=== PATIENT | male | born 1980 | race Caucasian/White ===

== ENCOUNTER 2025-04-05 10:46 | Outpatient (REF) | payer MEDICAID, SELFPAY ==
[2025-04-05 12:46] LABS: Alanine Aminotransferase 89 U/L (0-40); Albumin Level 4.2 g/dL (3.5-5.0); Alkaline Phosphatase 91 U/L (39-117); Anion Gap 7 (12-20); Aspartate Amino Transferase 45 U/L (5-37); Blood Urea Nitrogen 15 mg/dL (9-16); Calcium 8.8 mg/dL (8.4-10.2); Carbon Dioxide 26 mmol/L (22-29); Chloride 110 mmol/L (96-108); Cholesterol 115 mg/dL (<200); Estimated Glomerular Filt Rate > 60; HDL Cholesterol 28 mg/dL (>40); Potassium 4.1 mmol/L (3.3-5.1); Sodium 139 mmol/L (135-145); Total Protein 6.8 g/dL (6.5-8.0); Triglycerides 60 mg/dL (<150)
[2025-04-05 12:51] LABS: Thyroid Stimulating Hormone 1.92 uIU/mL (0.32-4.0)
== END 2025-04-05 10:47 | disposition home or self-care (01) ==
LOC: HO.10HDL 10:46
PROVIDERS: Visit Provider Internal Medicine
DX: Z00.00 Encounter for general adult medical examination without abnormal findings (principal); Z13.31 Encounter for screening for depression; E66.01 Morbid (severe) obesity due to excess calories; I10 Essential (primary) hypertension; M51.16 Intervertebral disc disorders with radiculopathy, lumbar region
CPT/HCPCS: 36415; 80053; 80061; 84443

== ENCOUNTER 2025-04-17 09:03 | Outpatient (REF) | payer MEDICAID, SELFPAY ==
[2025-04-17 10:53] LABS: Alanine Aminotransferase 50 U/L (0-40); Albumin Level 4.3 g/dL (3.5-5.0); Alkaline Phosphatase 98 U/L (39-117); Anion Gap 11 (12-20); Aspartate Amino Transferase 24 U/L (5-37); Blood Urea Nitrogen 18 mg/dL (9-16); Calcium 8.9 mg/dL (8.4-10.2); Carbon Dioxide 28 mmol/L (22-29); Chloride 103 mmol/L (96-108); Estimated Glomerular Filt Rate > 60; Potassium 3.9 mmol/L (3.3-5.1); Sodium 138 mmol/L (135-145); Total Protein 7.0 g/dL (6.5-8.0)
[2025-04-17 11:11] LABS: HBS Num1 0.00 mIU/mL (0-7.99); HBc Num1 0.07 S/CO (0.00-0.79); HBsAGNum1 0.34 S/CO (0.00-0.99); Hepatitis B Surface Antigen Negative (Negative); ~HepC Num1 0.07 S/CO (0.00-0.79); ~Hepatitis B Surface Antibody NONREACTIVE (Nonreactive); ~Hepatitis C Antibody Nonreactive (Nonreactive)
== END 2025-04-17 09:04 | disposition home or self-care (01) ==
LOC: HO.10HDL 09:03
PROVIDERS: Visit Provider Internal Medicine
DX: E66.01 Morbid (severe) obesity due to excess calories (principal); R74.01 Elevation of levels of liver transaminase levels; I10 Essential (primary) hypertension
CPT/HCPCS: 36415; 80053; 86704; 86706; 86803; 87340; 87902